=== PATIENT | male | born 1955 | race Caucasian/White ===

== ENCOUNTER → 2017-12-03 | Outpatient (CLI) | payer BC, OTHER | END | disposition home or self-care (01) | LOC: PCVCIMAG 10:41 | DX: I65.23 Occlusion and stenosis of bilateral carotid arteries (principal); I10 Essential (primary) hypertension; R06.00 Dyspnea, unspecified; R53.83 Other fatigue; A69.20 Lyme disease, unspecified | CPT/HCPCS: 93325; 93351; 93880 ==